=== PATIENT | male | born 1955 | race Caucasian/White ===

== ENCOUNTER → 2024-07-25 10:47 | Outpatient (REF) | payer OTHER, SELFPAY | LOC: RAD 10:47 | PROVIDERS: ATTENDING PHYSICIAN Internal Medicine Hematology & Oncology; FAMILY PHYSICIAN Family Medicine | DX: D50.0 Iron deficiency anemia secondary to blood loss (chronic) (principal); R06.00 Dyspnea, unspecified; R10.10 Upper abdominal pain, unspecified; R63.4 Abnormal weight loss; R53.82 Chronic fatigue, unspecified | CPT/HCPCS: 71046 ==

== ENCOUNTER → 2024-08-21 13:27 | Outpatient (REF) | payer OTHER, SELFPAY | LOC: RAD 13:27 | PROVIDERS: ATTENDING PHYSICIAN Internal Medicine Hematology & Oncology; FAMILY PHYSICIAN Family Medicine | DX: R06.09 Other forms of dyspnea (principal); R10.10 Upper abdominal pain, unspecified; D50.0 Iron deficiency anemia secondary to blood loss (chronic); R06.00 Dyspnea, unspecified; R63.4 Abnormal weight loss; R53.82 Chronic fatigue, unspecified | CPT/HCPCS: 76700 ==

== ENCOUNTER → 2024-08-29 08:04 | Outpatient (REF) | payer MEDICARE, SELFPAY ==
[2024-08-29 09:38] LABS: % Basophils 0.5 % (0-2); % Eosinophils 1.8 % (0-6); % Immature Granulocytes 0.3 % (0-0.5); % Lymphocytes 23.4 % (20.5-51.1); % Monocytes 11.6 % (1.7-9.3); % Neutrophils 62.4 % (42.2-75.2); Absolute Eosinophils 0.1 10^3/uL (0-0.7); Absolute Lymphocytes 0.9 10^3/uL (1.2-3.4); Absolute Monocytes 0.5 10^3/uL (0.1-0.6); Absolute Neutrophils 2.4 10^3/uL (1.4-6.5); Hemoglobin 10.3 g/dL (13.0-18.0); Mean Corp Hgb Conc. 31.2 g/dL (33.0-37.0); Mean Corpuscular Hgb 26.1 pg (27.0-31.0); Mean Corpuscular Volume 83.8 fL (80.0-94.0); Mean Platelet Volume 10.2 fL (7.4-10.4); Nucleated Red Blood Cells % 0 % (-); Platelet Count 218 10^3/uL (130-400); Red Blood Cell Count 3.94 10^6/uL (4.70-6.10); Red Cell Dist. Width 13.5 % (11.5-14.5); Reticulocyte Count 1.5 % (0.4-2.8); White Blood Cell Count 3.9 10^3/uL (4.8-10.8)
[2024-08-29 10:03] LABS: LDH 169 U/L (120-246)
[2024-08-29 10:10] LABS: TSH < 0.02 uIU/ml (0.47-4.68)
[2024-08-29 10:29] LABS: Vitamin B12 637 pg/ml (239-931)
[2024-08-29 10:37] LABS: Erythrocyte Sed Rate 25 mm/hour (0-20)
[2024-08-30 23:03] LABS: Haptoglobin 184 mg/dL (30-200)
== END ==
LOC: REG 08:04
PROVIDERS: ATTENDING PHYSICIAN Internal Medicine Hematology & Oncology; FAMILY PHYSICIAN Family Medicine
DX: D50.0 Iron deficiency anemia secondary to blood loss (chronic) (principal); R06.00 Dyspnea, unspecified; R10.10 Upper abdominal pain, unspecified; R63.4 Abnormal weight loss; R53.82 Chronic fatigue, unspecified; D51.9 Vitamin B12 deficiency anemia, unspecified
CPT/HCPCS: 36415; 82607; 83010; 83615; 84443; 85025; 85045; 85652; 86880

== ENCOUNTER 2024-11-06 08:12 | Emergency (ER) | payer OTHER, SELFPAY ==
[2024-11-06] VITALS (8 sets, daily range): BP systolic 94–141; BP diastolic 52–75; BMI 19.2
[2024-11-06] MEDS: CARDIZEM 10 MG IV (08:57)
[2024-11-06] MEDS: CARDIZEM 125 IV (08:59)
--- NOTE | 2024-11-06 08:59 | ED.GENMED ---
History of Present Illness
General
Chief Complaint: Heart Rate Problem
Source: patient and spouse
Time Seen by Provider: 11/06/24 08:29
History of Present Illness
History of Present Illness:
69-year-old male with past medical history of hypertension presenting to the emergency department for evaluation after he was in scheduled for a bone marrow biopsy with interventional radiology this morning when he was found to be in atrial
fibrillation. Patient reports no symptoms at this time including chest pain, shortness of breath, palpitations, diaphoresis, exertional dyspnea or any other concerns. No history of similar. Patient was undergoing the bone marrow biopsy today at
request of hotel operation manager, Dr. Montoya, due to proximately 6 months of anemia and 50 pound weight loss that is unexplained. Patient has no other history of cardiac disease. He is not on any anticoagulant. No other concerns presently.
Past History
Past History
ED Past Medical History: HTN and Other
ED Past Surgical History: Tonsilectomy and Other
Social History
Tobacco: Non-smoker
Alcohol: None
Drug: None
Personal:
Living: with family
Employment: Employed
Review of Systems
Review of Systems
All Other Systems: ROS reviewed and negative except as documented in HPI and ROS
Phy Exam
Physical Exam
Physical Exam:
GENERAL: Alert , in no apparent distress, thin
HEAD: NCAT
EYE: clear conjunctiva
NECK: Supple
ENT: o/p clr, mmm.
CARDIAC: Irregularly irregular, tachycardic with rate between 135-152bpm
LUNGS: Clear breath sounds bilaterally, no acute respiratory distress
NEUROLOGICAL: Alert and oriented
SKIN: Warm and dry, skin intact.
MUSCULOSKELETAL: No edema, well perfused.
PSYCH: Normal and appropriate interaction.
Scores
[id number] Score for Afib Stroke Risk
Age in Years (65=0, 65-74=1, >/=75=2): 65-74
Sex (Female=+1): Male
Congestive Heart Failure History (Yes=+1): No
Hypertension History (Yes=+1): Yes
Stroke/TIA/Thromboembolism History (Yes=+2): No
Vascular Disease History (Yes=+1): No
Diabetes Mellitus (Yes=+1): No
Score: 2
Anticoagulation Recommendations: Recommend anticoagulation (as validated in nonvalvular fib)
Heart Failure Risk
Heart Failure Risk Score: Not Applicable
Heart Score for Chest Pain Patients
STEMI patient?: Not applicable
Withdrawal Assessment of Alcohol
Withdrawal Assessment Completed?: Not applicable
Course
Orders/Labs/Results
Orders:
Orders
11/06/24 08:12
Electrocardiogram (*1) Urgent
Reason for Study: Atrial Fibrillation
EKG- Treatment ONCE
11/06/24 08:43
Diltiazem HCl [Cardizem] 10 mg IV NOW STA
11/06/24 08:45
Diltiazem 125 mg/125 ml Nss [Cardizem] 125 mg in 125 ml IV PER PROTOCOL
Initial dose in mg/hr, then titrate:: 5
Titrate to keep:: Heart rate 80-100 bpm
Titrate by mg/hr:: 5 mg/hr
Frequency of titrations (minutes):: 15
Maximum dose in mg/hr:: 15
11/06/24 08:47
Complete Blood Count/With Diff Urgent
Comprehensive Metabolic Panel Urgent
Magnesium Urgent
TSH Urgent
11/06/24 09:00
Add On- LAB Urgent
Tests Added?: TSH
11/06/24 10:25
Diltiazem Extended Release [Cardizem Cd] 120 mg PO NOW STA
Abnormal Lab Results
11/06/24
08:47
WBC 3.9 L 10^3/uL
(4.8-10.8)
RBC 3.96 L 10^6/uL
(4.70-6.10)
Hgb 10.5 L g/dL
(13.0-18.0)
Hct 32.8 L %
(39.0-52.0)
MCH 26.5 L pg
(27.0-31.0)
MCHC 32.0 L g/dL
(33.0-37.0)
Absolute Lymphs (auto) 0.7 L 10^3/uL
(1.2-3.4)
Lymphocytes % 17.9 L %
(20.5-51.1)
Monocytes % 12.7 H %
(1.7-9.3)
BUN 30 H mg/dl
(9-20)
Creatinine 0.6 L mg/dL
(0.7-1.3)
Glucose 110 H mg/dl
(70-99)
Calcium 10.3 H mg/dl
(8.4-10.2)
Alkaline Phosphatase 191 H U/L
(38-126)
Total Protein 6.0 L g/dl
(6.3-8.2)
TSH < 0.02 L uIU/ml
(0.47-4.68)
11/06/24 08:47
11/06/24 08:47
Vital Signs
Initial and Last Documented VS:
Initial Vital Signs
Temp Pulse Resp BP Pulse Ox
98.1 F 95 18 141/72 99
11/06/24 08:19 11/06/24 08:19 11/06/24 08:19 11/06/24 08:19 11/06/24 08:19
Last Documented Vital Signs
Temp Pulse Resp BP Pulse Ox
98.1 F 102 14 94/75 98
11/06/24 08:19 11/06/24 11:15 11/06/24 11:15 11/06/24 11:00 11/06/24 11:15
MDM/Problems Addressed
Differential Diagnosis Includes:
new onset afib, valvular dysfunction, electrolyte derangement, anemia
MDM/Problems Addressed:
69-year-old male presenting to the emergency department for evaluation after being found to be in a new onset atrial fibrillation just prior to procedure being done earlier this morning. Patient is asymptomatic at this time. Rate between 135 and
152 bpm. Patient otherwise hemodynamically stable. Will with Cardizem bolus and infusion. Will discuss with patient's hematology team on how they wish to pursue further management. If need to orally anticoagulate this could delay patient's bone
marrow biopsy. If start heparin patient could still potentially get his procedure done and continue outpatient treatment with cardiology. Disposition pending.
*Pulse Oximetry
Patient hypoxic: no
*EKG
Interpreted by ED Provider?: Yes
Heart Rate: 142
Rate: tachycardiac
Rhythm: a-fib
Ischemia: no ischemia
*Piece Cutter Interpretation
Rate: tachycardiac
Rhythm: a-fib
*Critical Care Note
Total Time (30-74mins, 75-104mins- exclusive of procedures): 30
comment:
Critical care statement: A total of 30 minutes of critical care time was provided for this patient. This includes management of unstable vital signs, evaluation of the patient at bedside, reviewing the patient's pertinent medical records, discussion
with consultants, review of old EKGs and review of pertinent medical records. This time with separate from time utilized to perform the aforementioned documented procedures
Comment
Comment:
Patient's heart rate is between 85 to 95 bpm on the Cardizem presently. Will discuss with cardiology, hematology and interventional radiology to help determine further treatment planning given patient will need continued care.
Patient Management
Discussion with other providers: Crystal Attacher
Escalation/DeEscalation of care consider admission/obs:
I spoke to patient's hotel operation manager, Dr. Montoya, who is aware that patient went into rapid A-fib prior to his bone marrow biopsy being completed. Awaiting to see if he is okay with us initiating Eliquis and Cardizem prior to disposition. I spoke to
cardiology and reviewed patient's workup and labs. They are okay with us starting Eliquis as long as hematology is okay with this being initiated as well as the Cardizem 120 mg p.o. daily. I also spoke with interventional radiology to see if it
was still possible for patient to get his bone marrow biopsy completed today as he is currently stabilized on the Cardizem but unfortunately they do not have the capability to get this done today any longer but they did note that they will be
contacting the patient/spouse to get the patient rescheduled RICH.
Following cessation of the Cardizem infusion and oral dose of Cardizem patient's heart rate remained in the low 90s. He also remains asymptomatic. Patient is stable for discharge home and continued outpatient follow-up as mentioned above. Aware
of return precautions to the ER. Risks of starting anticoagulation discussed with the patient. Both he and are in agreement with this treatment plan and aware of return precautions
ED Attending Note
-
Portions of this chart may have been created with voice recognition software.� Occasional wrong word or��sound alike� substitutions may have occurred due to the inherent limitations of voice recognition software.
Discharge Plan
Departure
Patient Disposition: Home (Routine Discharge)
Date of Disposition: 11/06/24
Time of Disposition: 11:06
Patient with high blood pressure during this ER visit?: No
Discharge Problem:
Atrial fibrillation, new onset
Instructions: Atrial Fibrillation (DC), Chest Pain CBC Follow Up
Prescriptions:
New
Eliquis 5 mg tablet
5 mg PO BID Qty: 60 0RF
diltiazem HCl [Cardizem CD] 120 mg capsule,extended release 24hr
120 mg PO DAILY Qty: 30 0RF
No Action
lisinopril-hydrochlorothiazide 20-12.5 mg Tablet
1 tab PO DAILY
Referrals:
Raleigh Light MD [Family Provider] -
Lonnie Loaiza MD [Active] - (Cardiology)
Interventions
Interventions:
*Risk Screen - Suicide Last Done: 11/06/24 08:19
*General Assessment Last Done: 11/06/24 08:19
*Neglect/Abuse Screening Last Done: 11/06/24 08:19
*ED- Fall Risk Assessment Last Done: 11/06/24 08:33
*ED COVID-19 Vaccine History Last Done: 11/06/24 08:33
*Nursing Disposition Last Done: 11/06/24 11:28
ED- Cardiac Assessment Last Done: 11/06/24 08:33
ED- Pulmonary Assessment Last Done: 11/06/24 08:33
Discharge Date and Time
Discharge Date/Time: 11/06/24 11:20
Print Language: SWISS
[2024-11-06 09:00] LABS: % Basophils 0.5 % (0-2); % Eosinophils 0.5 % (0-6); % Immature Granulocytes 0.3 % (0-0.5); % Lymphocytes 17.9 % (20.5-51.1); % Monocytes 12.7 % (1.7-9.3); % Neutrophils 68.1 % (42.2-75.2); Absolute Lymphocytes 0.7 10^3/uL (1.2-3.4); Absolute Monocytes 0.5 10^3/uL (0.1-0.6); Absolute Neutrophils 2.6 10^3/uL (1.4-6.5); Hematocrit 32.8 % (39.0-52.0); Hemoglobin 10.5 g/dL (13.0-18.0); Mean Corpuscular Hgb 26.5 pg (27.0-31.0); Mean Corpuscular Volume 82.8 fL (80.0-94.0); Mean Platelet Volume 10.4 fL (7.4-10.4); Nucleated Red Blood Cells % 0 % (-); Platelet Count 216 10^3/uL (130-400); Red Blood Cell Count 3.96 10^6/uL (4.70-6.10); Red Cell Dist. Width 13.7 % (11.5-14.5); White Blood Cell Count 3.9 10^3/uL (4.8-10.8)
[2024-11-06 09:26] LABS: ALT (SGPT) 38 U/L (0-50); AST (SGOT) 39 U/L (17-59); Albumin 3.5 g/dl (3.5-5.0); Alkaline Phosphatase 191 U/L (38-126); Blood Urea Nitrogen 30 mg/dl (9-20); Calcium 10.3 mg/dl (8.4-10.2); Carbon Dioxide 24 mmol/L (22-30); Chloride 107 mmol/L (98-107); Estimated Creatinine Clearance 100 ml/min; Glucose 110 mg/dl (70-99); Magnesium 1.7 mg/dl (1.6-2.3); Potassium 4.2 mmol/L (3.5-5.1); Sodium 137 mmol/L (135-145); Total Bilirubin 0.8 mg/dl (0.2-1.3); eGFR > 60.00
[2024-11-06 09:56] LABS: TSH < 0.02 uIU/ml (0.47-4.68)
[2024-11-06] MEDS: CARDIZEM CD 120 MG PO (10:37)
== END 2024-11-06 11:20 | disposition home or self-care (01) ==
LOC: EMR 08:12
PROVIDERS: Physician Assistant Medical; EMERGENCY PHYSICIAN Emergency Medicine; FAMILY PHYSICIAN Family Medicine
DX: I48.91 Unspecified atrial fibrillation (principal); I10 Essential (primary) hypertension; D64.9 Anemia, unspecified; R63.4 Abnormal weight loss; Z88.8 Allergy status to other drugs, medicaments and biological substances; Z91.013 Allergy to seafood
CPT/HCPCS: 99291; 96365; 96366; 36415; 80053; 83735; 84443; 85025; 85610; 93005

== ENCOUNTER → 2024-11-10 07:06 | Outpatient (REF) | payer OTHER, SELFPAY ==
[2024-11-10] VITALS (7 sets, daily range): BP systolic 84–151; BP diastolic 49–92
[2024-11-10 07:35] LABS: % Basophils 0.4 % (0-2); % Immature Granulocytes 0.4 % (0-0.5); % Lymphocytes 23.4 % (20.5-51.1); % Monocytes 15.6 % (1.7-9.3); % Neutrophils 59.2 % (42.2-75.2); Absolute Eosinophils 0.1 10^3/uL (0-0.7); Absolute Lymphocytes 1.1 10^3/uL (1.2-3.4); Absolute Monocytes 0.8 10^3/uL (0.1-0.6); Absolute Neutrophils 2.9 10^3/uL (1.4-6.5); Hematocrit 32.5 % (39.0-52.0); Hemoglobin 10.7 g/dL (13.0-18.0); Mean Corp Hgb Conc. 32.9 g/dL (33.0-37.0); Mean Corpuscular Hgb 26.8 pg (27.0-31.0); Mean Corpuscular Volume 81.3 fL (80.0-94.0); Mean Platelet Volume 10.4 fL (7.4-10.4); Nucleated Red Blood Cells % 0 % (-); Platelet Count 206 10^3/uL (130-400); Red Cell Dist. Width 13.6 % (11.5-14.5); White Blood Cell Count 4.8 10^3/uL (4.8-10.8)
[2024-11-10] MEDS: NSS (PRESERVATIVE FREE) 0.25 ML IV (08:13)
[2024-11-10] MEDS: ATIVAN 0.5 MG IV (08:13)
[2024-11-10] MEDS: FLUSH (NSS) 1 FLUSH IV (08:14)
[2024-11-10 08:17] LABS: PT 20.2 Sec (11.4-14.6)
== END ==
LOC: RADI 07:06
PROVIDERS: ATTENDING PHYSICIAN Internal Medicine Hematology & Oncology; FAMILY PHYSICIAN Family Medicine; OTHER PHYSICIAN Physician Assistant
DX: D50.0 Iron deficiency anemia secondary to blood loss (chronic) (principal); R63.4 Abnormal weight loss; D68.8 Other specified coagulation defects
CPT/HCPCS: 88305; 88311; 88312; 36415; 38222; 77012; 85025; 85610; 88313

== ENCOUNTER → 2024-12-07 08:00 | Outpatient (REF) | payer OTHER, SELFPAY | LOC: RCS 08:00 | PROVIDERS: ATTENDING PHYSICIAN Internal Medicine; FAMILY PHYSICIAN Family Medicine | DX: I48.0 Paroxysmal atrial fibrillation (principal) | CPT/HCPCS: 93306 ==

== ENCOUNTER → 2024-12-14 07:31 | Outpatient (REF) | payer OTHER, SELFPAY | LOC: PAVMRI 07:31 | PROVIDERS: ATTENDING PHYSICIAN Internal Medicine Gastroenterology; FAMILY PHYSICIAN Family Medicine | DX: K83.8 Other specified diseases of biliary tract (principal) | CPT/HCPCS: 74183; A9575 ==

== ENCOUNTER → 2025-01-12 12:59 | Outpatient (REF) | payer OTHER, SELFPAY | LOC: RAD 12:59 | PROVIDERS: ATTENDING PHYSICIAN Nurse Practitioner Family; FAMILY PHYSICIAN Family Medicine | DX: R94.6 Abnormal results of thyroid function studies (principal) | CPT/HCPCS: 76536 ==